=== PATIENT | female | born 1930 | race Hispanic/Latino ===

== ENCOUNTER 2017-05-31 20:44 | Emergency (ER) | payer MEDICARE ==
[2017-05-31 20:45] VITALS: BMI 21.4
[2017-05-31 20:56] VITALS: TEMP 99.7
--- NOTE | 2017-05-31 21:16 | ED PDOC ---
Arrival/HPI - General Chief Complaint: Trauma Time Seen by Provider: 05/31/17 20:56 Historian: Family - History of Present Illness Narrative History of Present Illness (Text): 05/31/17 21:10 A 87 year old female, whose past medical history includes hypertension, CVA, anemia, hyperlipidemia, GERD diverticulitis, and dementia, is brought into the emergency department with family complaining of left hip pain for 3 weeks. 3 weeks ago, patient fell in the bathroom at home and injured her left hip. Since time of injury, patient has been receiving home care due to having trouble ambulating on her own. Patient's family reports of weakness, but denies of head trauma, headache, neck pain, nausea, vomiting, diarrhea, abdominal pain, back pain, or any other complaints. PMD: Dr. Weber Time/Duration: > week (3 weeks ago) Symptom Onset: Sudden Symptom Course: Unchanged Context: Home Past Medical History - Provider Review Nursing Documentation Reviewed: Yes - Infectious Disease Hx of Infectious Diseases: None - Tetanus Immunization Tetanus Immunization: Unknown - Reproductive Menopause: No - Cardiac Hx Congestive Heart Failure: No Hx PA: No Hx Hypertension: Yes Hx Internal Defibrillator: No Hx Pacemaker: No - Neurological HX Cerebrovascular Accident: Yes Hx Dementia: Yes - Hematological/Oncological Hx Anemia: Yes - Musculoskeletal/Rheumatological Hx Falls: No - Gastrointestinal Hx Diverticulitis: Yes - Psychiatric Hx Depression: No Hx Emotional Abuse: No Hx Physical Abuse: No Hx Substance Use: No - Past Surgical History Past Surgical History: Unable to Obtain - Surgical History Hx Cardiac Catheterization: No Hx Coronary Stent: No Hx Open Heart Surgery: No Hx Valve Replacement: No - Anesthesia Hx Anesthesia: Yes Hx Anesthesia Reactions: No Hx Malignant Hyperthermia: No - Suicidal Assessment Feels Threatened In Home Enviroment: No Family/Social History - Physician Review Nursing Documentation Reviewed: Yes Family/Social History: No Known Family HX Smoking Status: Former Smoker Hx Alcohol Use: No Hx Substance Use: No Hx Substance Use Treatment: No Allergies/Home Meds Allergies/Adverse Reactions: Allergies moxifloxacin [From Avelox] Allergy (Verified 05/31/17 21:07) RASH Penicillins Allergy (Verified 05/31/17 21:07) ANAPHYLAXIS Home Medications: Home Meds Medication Instructions Recorded Confirmed Aspirin 81 mg PO DAILY 11/26/12 06/01/17 Docusate Sodium [[facility]] 100 mg PO BID 11/26/12 06/01/17 Esomeprazole Magnesium [Nexium] 40 mg PO DAILY 11/26/12 06/01/17 Ezetimibe/Simvastatin [Vytorin 10 1 tab PO DAILY 11/26/12 06/01/17 mg-20 mg] Isosorbide Mononitrate [Imdur] 60 mg PO QPM 11/26/12 06/01/17 Memantine [Namenda] 10 mg PO BID 11/26/12 06/01/17 Prednisone 5 mg PO DAILY 11/26/12 06/01/17 QUEtiapine [SEROquel] 25 mg PO HS 11/26/12 06/01/17 Rivastigmine 4.6 mg/24 hr [Exelon 1 patch TD QPM 11/26/12 06/01/17 4.6 Patch] Trazodone Hydrochloride [Trazodone 50 mg PO DAILY 11/26/12 06/01/17 HCl] B1/B2/Niacin/B12/Protease [B 1 tab PO DAILY 02/09/15 06/01/17 Complex & B12] Irbesartan 300 mg PO DAILY 02/09/15 06/01/17 Melatonin 3 mg PO DAILY 02/09/15 06/01/17 Multivitamin 1 tab PO DAILY 02/09/15 06/01/17 Review of Systems - Physician Review All systems were reviewed & negative as marked: Yes - Review of Systems Gastrointestinal: absent: Abdominal Pain, Diarrhea, Nausea, Vomiting Musculoskeletal: Other (left hip pain). absent: Back Pain, Neck Pain Neurological: absent: Other (head tramua) Physical Exam Vital Signs Reviewed: Yes Vital Signs Temp Pulse Resp BP Pulse Ox 06/01/17 01:31 92 H 18 186/91 H 94 L 06/01/17 00:45 96 H 18 180/90 H 93 L 05/31/17 22:45 98 H 18 165/90 H 94 L 05/31/17 21:41 91 H 18 163/74 H 96 05/31/17 20:56 99.7 F H 94 H 24 152/59 H 90 L Temperature: Afebrile Blood Pressure: Normal Pulse: Regular Respiratory Rate: Normal Appearance: Positive for: Well-Appearing Pain Distress: None Mental Status: Positive for: other (Arousable to voice but doesn't answer questions which is her baseline as per family) - Systems Exam Head: Present: Atraumatic, Normocephalic Pupils: Present: PERRL Extroacular Muscles: Present: EOMI Conjunctiva: Present: Normal Mouth: Present: Moist Mucous Membranes Neck: Present: Normal Range of Motion. No: MIDLINE TENDERNESS Respiratory/Chest: Present: Clear to Auscultation, Good Air Exchange. No: Respiratory Distress, Accessory Muscle Use Cardiovascular: Present: Regular Rate and Rhythm, Normal S1, S2. No: Murmurs Abdomen: Present: Normal Bowel Sounds. No: Tenderness, Distention, Peritoneal Signs Back: Present: Normal Inspection Upper Extremity: Present: Normal Inspection. No: Cyanosis, Edema Lower Extremity: Present: Other (right heel 1 1/2 cm circular ulcer with no surrounding erythema or edema; left hip tenderness on the lateral side). No: Edema, NORMAL PULSES, Cyanosis, Normal ROM, Swelling, Erythema, Deformity Neurological: Present: GCS=15, CN II-XII Intact, Speech Normal Skin: Present: Warm, Dry, Normal Color. No: Rashes Psychiatric: Present: Alert, Oriented x 3, Normal Insight, Normal Concentration Medical Decision Making ED Course and Treatment: 05/31/17 21:14 Impression: 87 year old female with left hip pain x 3 weeks. DDx: Left Hip Fracture vs Contusion Plan: --Blood Gas -- Pelvis CT -- Chest X-Ray -- Labs -- Urinalysis -- Reassess and disposition Prior Visits: Notes and results from previous visits were reviewed. Patient was last seen in the emergency department on 02/09/2015 was been having diarrhea x 8 days. Patient was admitted. Progress Notes: 05/31/2017 9:[address] COMPARISON: No relevant prior studies available. FINDINGS: Bones/joints: Compression of L4 which is likely chronic. Question of old lateral compression of the subcapital right femoral neck. There is mild induration of fat around the left hip with minimal asymmetric left joint effusion. No dislocation. Soft tissues: Mild subcutaneous induration lateral to the left hip. Appendix: A normal appendix is seen. Bladder: Unremarkable. No stones. Reproductive: The uterus is relatively enlarged for age measuring 4.6 cm in its AP dimension with small calcifications about the periphery. There is prominent gas within the anterior aspect of the uterus suggesting a large central cavity filled with soft tissue material and gas. There is direct contact with a slightly distended rectum which measures 6.7 cm in its lateral dimension. Endometrial mass is not excluded with the endometrium measuring potentially up to 3.2 cm in diameter. IMPRESSION: 1. Mild subcutaneous induration lateral to the left hip. 2. Mild induration around the left hip capsule with minimal asymmetric joint effusion but no definite fracture which may reflect a synovitis. 3. Prominent gas within the central uterus with some uterine enlargement. There is suggestion of gas partially filling a central uterine cavity and may reflect endometrial prominence. Endometrial mass and/or or infection may be considered. Colouterine fistula is not excluded. 4. Compression of L4 which appears to be old. 5. No definite acute fracture of the left hip is identified. 05/31/2017 21:20 Chest X-Ray appears normal. Reevaluation: Patient is more aware and at baseline. No pain to her hip. FROM. Patient will follow-up with PMD. UTI noted and treated with Bactrim. Patient Reevaluation: I have discussed the results and plan with the patient's family, who expresses understanding. Patient is stable for discharge. Patient was instructed to follow up with physician or return if symptoms worsen or new concerning symptoms arise. - Lab Interpretations Lab Results: 05/31/17 21:30 05/31/17 21:30 Lab Results 06/01/17 00:04: Urine Color Yellow, Urine Appearance Cloudy, Urine pH 6.0, Ur Specific [place] 1.025, Urine Protein Trace H, Urine Glucose (UA) Negative, Urine Ketones Negative, Urine Blood Moderate H, Urine Nitrate Positive H, Urine Bilirubin Negative, Urine Urobilinogen 1.0 H, Ur Leukocyte Esterase Large H, Urine RBC 1 - 3, Urine WBC 25 - 30, Ur Epithelial Cells 1 - 3, Urine Bacteria Many 05/31/17 21:30: Sodium 141, Chloride 105, Potassium 4.2, Carbon Dioxide 25, Anion Gap 15, BUN 18, Creatinine 1.3, Est GFR ( Amer) 47, Est GFR (Non- Af Amer) 39, Random Glucose 121 H, Calcium 8.8, Phosphorus 4.1, Magnesium 2.1, Total Bilirubin 0.6, AST 28, ALT 36, Alkaline Phosphatase 158 H, Troponin I 0.03 D, Total Protein 7.0, Albumin 3.3, Globulin 3.7, Albumin/Globulin Ratio 0.9 L 05/31/17 21:30: pO2 33, VBG pH 7.39, VBG pCO2 43.0, VBG HCO3 26.0, VBG Total CO2 27.3, VBG O2 Sat (Calc) 66.0 H, VBG Base Excess 0.8, VBG Potassium 4.3, Sodium 140.0, Chloride 109.0 H, Glucose 127 H, Lactate 1.8, FiO2 21.0, Venous Blood Potassium 4.3 05/31/17 21:30: PT 11.9 H, INR 1.10 H, APTT 31.0 H 05/31/17 21:30: WBC 9.5 D, RBC 4.08, Hgb 10.9 L, Hct 34.3 L, MCV 84.1, MCH 26.7 , MCHC 31.8, RDW 16.2 H, Plt Count 312, MPV 9.6, Gran % 77.0 H, Lymph % (Auto) 13.2 L, Garrett % (Auto) 9.5 H, Eos % (Auto) 0.0 L, Baso % (Auto) 0.3, Gran # 7.27 H, Lymph # 1.3, Garrett # 0.9 H, Eos # 0.0, Baso # 0.03 I have reviewed the lab results: Yes - RAD Interpretation Radiology Orders: 05/31/17 21:14 CHEST PORTABLE [RAD] Stat 05/31/17 21:15 PELVIS W/O PO OR IV CONTRAST [CT] Stat Whizzer: Radiologist - Medication Orders Current Medication Orders: Discontinued Medications Trimethoprim/Sulfamethoxazole (Bactrim Ds Tab) 1 tab PO STAT STA PRN Reason: Protocol Stop: 06/01/17 00:17 Last Admin: 06/01/17 00:32 Dose: 1 tab - Scribe Statement Tara Hargrove Provider Scribe Attestation: All medical record entries made by the Scribe were at my direction and personally dictated by me. I have reviewed the chart and agree that the record accurately reflects my personal performance of the history, physical exam, medical decision making, and the department course for this patient. I have also personally directed, reviewed, and agree with the discharge instructions and disposition.] Disposition/Present on Arrival - Present on Arrival Any Indicators Present on Arrival: No History of DVT/PE: No History of Uncontrolled Diabetes: No Urinary Catheter: No History of Decub. Ulcer: No History Surgical Site Infection Following: None - Disposition Have Diagnosis and Disposition been Completed?: Yes Diagnosis: Contusion, hip, UTI (urinary tract infection) Disposition: HOME/ ROUTINE Disposition Time: Patient Plan: Discharge Condition: IMPROVED Discharge Instructions (ExitCare): Urinary Tract Infection in Women (DC), Hip Contusion (ED) Additional Instructions: Dmitry, thank you for letting us take care of you today. Your provider was Dr. Ramos. You were treated for UTI, Hip Contusion. The emergency medical care you received today was directed at your acute symptoms. If you were prescribed any medication, please fill it and take as directed. It may take several days for your symptoms to resolve. Return to the Emergency Department if your symptoms worsen, do not improve, or if you have any other problems. Please contact your doctor or call one of the physicians/clinics you have been referred to that are listed on the Patient Visit Information form that is included in your discharge packet. Bring any paperwork you were given at discharge with you along with any medications you are taking to your follow up visit. Our treatment cannot replace ongoing medical care by a primary care provider (PCP) outside of the emergency department. Thank you for allowing the [facility] team to be part of your care today. If you had an X-Ray or CT scan: A Radiologist will review the ED reading if any change in treatment is needed we will contact you. If you had a blood, urine, or wound culture: It will take several days for the results, if any change in treatment is needed we will contact you. If you had an STI test: It will take 48 hours for the results. Please call after 1 week if you have not heard back. Prescriptions: Sulfamethoxazole/Trimethoprim [Bactrim DS 800 mg-160 mg] 1 tab PO BID #10 tab Referrals: Margarito Weber MD [Primary Care Provider] - Follow up with primary Forms: [employer] ([place])
[2017-05-31 21:47] VITALS: RESP 18
[2017-05-31 21:50] LABS: BASO # 0.03 K/mm3 (0.0-2.0); BASO % 0.3 % (0.0-3.0); GRAN # 7.27 (1.4-6.5); HEMOGLOBIN 10.9 gm/dL (12.0-16.0); LYMPH # 1.3 (1.2-3.4); LYMPH % 13.2 % (22.0-35.0); MEAN CELL VOLUME 84.1 fL (80.0-105.0); MEAN CORPUSCULAR HEMOGLOBIN 26.7 pg (25.0-35.0); MEAN CORPUSCULAR HGB CONC 31.8 g/dl (31.0-37.0); MEAN PLATELET VOLUME 9.6 fl (7.0-11.0); MONO # 0.9 (0.1-0.6); MONO % 9.5 % (1.0-6.0); PLATELET COUNT 312 10^3/uL (120.0-450.0); RBC 4.08 10^6/uL (3.5-6.1); RED CELL DISTRIBUTION WIDTH 16.2 % (11.5-14.5); VENOUS BLOOD GAS BASE EXCESS 0.8 mmol/L (0.0-2.0); VENOUS BLOOD GAS PO2 33 mm/Hg (30-55); VENOUS BLOOD PH 7.39 (7.32-7.43); WHITE BLOOD COUNT 9.5 10^3/ul (4.5-11.0)
[2017-05-31 22:00] LABS: ALB/GLOB RATIO 0.9 (1.1-1.8); ALBUMIN 3.3 g/dL (3.0-4.8); CALCIUM 8.8 mg/dL (8.4-10.5); MAGNESIUM 2.1 mg/dL (1.7-2.2)
[2017-05-31 22:02] LABS: INR 1.1 (0.93-1.08); PROTHROMBIN TIME 11.9 Seconds (9.9-11.8)
[2017-05-31 22:13] LABS: TROPONIN I 0.03 ng/mL
[2017-06-01 00:10] LABS: URINE BILIRUBIN NEGATIVE (NEGATIVE); URINE BLOOD MODERATE (NEGATIVE); URINE GLUCOSE (UA) NEGATIVE (NEGATIVE); URINE LEUKOCYTE ESTERASE LARGE Leu/uL (NEGATIVE); URINE NITRATE POSITIVE (NEGATIVE); URINE PROTEIN TRACE mg/dL (<30 mg/dL)
[2017-06-01 00:13] LABS: URINE APPEARANCE CLOUDY (CLEAR); URINE COLOR YELLOW (YELLOW)
[2017-06-01] MEDS ORDERED: Tmp-Smz 800 mg-160 mg DS Tab PO STA (00:16)
[2017-06-01 00:27] LABS: URINE BACTERIA MANY (NEG); URINE WBC 25 - 30 /hpf (0-6)
[2017-06-01 01:33] VITALS: BP 186/91; PULSE 92; O2SAT 94
--- NOTE | 2017-06-01 10:20 | CT ---
PROCEDURE: CT of the Left Hip. HISTORY: left hip pain r/o fracture COMPARISON: None available. TECHNIQUE: Contiguous axial images of the left hip were obtained. Coronal and sagittal reformats were generated. This CT exam was performed using one or more of the following dose reduction techniques: Automated exposure control, adjustment of the mA and/or kV according to patient size, and/or use of iterative reconstruction technique. FINDINGS: BONES: Unremarkable. No fracture or focal lesion. Femoral head maintains normal contour. Mild soft tissue swelling in the left lateral subcutaneous fat. LEFT HIP JOINT: Unremarkable. No dislocation. No degenerative changes. SOFT TISSUES: Incidental note is made of gas within the endometrial cavity with uterine enlargement. An endometrial mass or infection is not excluded. IMPRESSION: No fracture. Recommend gynecological consultation for possible endometrial mass or infection.
--- NOTE | 2017-06-01 12:48 | RAD ---
HISTORY: Sepsis Patient COMPARISON: Chest x-ray performed 02/10/15 TECHNIQUE: Chest, one view. FINDINGS: LUNGS: Biapical pleural thickening. Streaky opacity at the right midlung zone may reflect atelectasis or infiltrate. No significant pleural effusion. No definite pneumothorax. Please note that chest x-ray has limited sensitivity for the detection of pulmonary masses. CARDIOVASCULAR: Heart size appears within normal limits. Ectatic aorta. Dense atherosclerotic calcifications. OSSEOUS STRUCTURES: Evidence of prior vertebroplasty involving the lower thoracic as well as lumbar spine. Osseous demineralization. Extensive degenerative changes. VISUALIZED UPPER ABDOMEN: Right upper quadrant surgical clips. OTHER FINDINGS: None. IMPRESSION: Streaky opacity at the right midlung zone may reflect atelectasis or infiltrate. Biapical pleural thickening. Atherosclerotic calcifications. Additional findings as above. Study has been marked for PA review.
== END 2017-06-01 01:33 | disposition home or self-care (01) ==
LOC: ED 20:44
DX: S70.02XD Contusion of left hip, subsequent encounter (principal); W01.0XXD Fall on same level from slipping, tripping and stumbling without subsequent striking against object, subsequent encounter; N39.0 Urinary tract infection, site not specified; I10 Essential (primary) hypertension; E78.5 Hyperlipidemia, unspecified; F03.90 Unspecified dementia, unspecified severity, without behavioral disturbance, psychotic disturbance, mood disturbance, and anxiety; Z86.73 Personal history of transient ischemic attack (TIA), and cerebral infarction without residual deficits; Z87.891 Personal history of nicotine dependence